=== PATIENT | male | born 1945 ===

== ENCOUNTER → 2025-02-17 | Outpatient (CLI) | payer OTHER, MEDICAID ==
[~2025-02-17] MED LIST: ABILIFY30 MG PO; ACETIC ACID 01000 ML IL; ADVAIR HFA 230-12 GM INH; ASPIRIN ADULT L81 M2 PO; BISOPROLOL FUMA10 MG PO; BUSPIRONE10 MG PO; DOXYCYCLINE HY100 M3 PO; GENTLE LAXATIVE10 MG R; HUMALOG100 UNIT/1 SC; HYDROCODONE-AC1 EAC1 PO; JARDIANCE25 MG PO; LIDOCAINE PAIN1 EACH T; LIPITOR40 MG PO; METFORMIN HYDR500 MG PO; NORVASC10 MG PO; NYSTATIN CREAM15 GM T; PROTONIX20 MG PO; ZOLOFT100 MG PO
== END | disposition home or self-care (01) ==
LOC: US 02:07
PROVIDERS: ATTEND Nurse Practitioner
DX: N31.9 Neuromuscular dysfunction of bladder, unspecified (principal)